=== PATIENT | male | born 1995 | race Asian ===

== ENCOUNTER 2021-07-06 13:15 | Emergency (ER) | payer OTHER ==
[2021-07-06] MEDS ORDERED: LIDOCAINE VISCOUS 2% 15 ML UDC MM STA (13:33)
[2021-07-06] MEDS ORDERED: MAG HYDROX/AL HYDROX/SIMETH 30 ML UDC PO STA (13:34)
--- NOTE | 2021-07-06 13:35 | ED Physician Documentation ---
PD HPI ABD PAIN - Stated complaint Stated Complaint: UPPER ABD PX/N/V - Chief complaint Chief Complaint: Abd Pain - History obtained from History obtained from: Patient - History of Present Illness Timing - onset: Enter time (124) Timing - duration: Minutes Timing - details: Abrupt onset, Still present Quality: Sharp, Pain Location: Epigastric Radiation: Chest Improved by: Laying still Worsened by: Breathing, Position, Palpation Associated symptoms: Nausea. No: Vomiting Similar symptoms before: Has not had sx before Recently seen: Not recently seen - Additional information Additional information: 26-year-old male reports that today he was standing when he had sudden onset of epigastric pain that was severe and stabbing in nature and this pain progressed to a 10 and he is come to the emergency department for evaluation. He has had prior symptoms of ulcer once previously he does not take any medication for his stomach and he denies any use of ibuprofen Aleve or alcohol.The patient indicates that he has not recently been ill. Review of Systems Constitutional: denies: Fever Eyes: denies: Decreased vision Ears: denies: Ear pain Nose: denies: Congestion Throat: denies: Sore throat Cardiac: denies: Chest pain / pressure, Palpitations, Pedal edema, Calf pain Respiratory: denies: Dyspnea, Cough GI: reports: Abdominal Pain, Nausea. denies: Vomiting, Constipation, Diarrhea : denies: Dysuria, Frequency PD PAST MEDICAL HISTORY - Present Medications Home Medications: Ambulatory Orders Medication Instructions Recorded Confirmed Sucralfate [Carafate] 1 gm PO ACHS #60 tablet 07/06/21 - Allergies Allergies/Adverse Reactions: Allergies Allergy/AdvReac Type Severity Reaction Status Date / Time No Known Drug Allergies Allergy Verified 07/06/21 13:22 PD ED PE NORMAL - Vitals Vital signs reviewed: Yes (Hypertensive mild) - General General: Alert and oriented X 3, No acute distress, Well developed/nourished - HEENT HEENT: Atraumatic, PERRL, EOMI - Neck Neck: Supple, no meningeal sign, No bony TTP - Cardiac Cardiac: RRR, No murmur - Respiratory Respiratory: No respiratory distress, Clear bilaterally - Abdomen Abdomen: Normal bowel sounds, Soft, Non distended, No organomegaly, Other (Mild epigastric tenderness to deep palpation. No right or left upper quadrant tenderness.) - Back Back: No CVA TTP, No spinal TTP - Derm Derm: Normal color, Warm and dry, No rash - Extremities Extremities: No deformity, No edema - Neuro Neuro: Alert and oriented X 3, roller cleaner 2-12 intact, No motor deficit, No sensory deficit, Normal speech Eye Opening: Spontaneous Motor: Obeys Commands Verbal: Oriented GCS Score: 15 - Psych Psych: Normal mood, Normal affect Results - Vitals Vitals: Vital Signs - 24 hr 07/06/21 07/06/21 13:22 15:04 Temperature 36.7 C Heart Rate 76 81 Respiratory 16 16 Rate Blood Pressure 125/84 H 147/97 H O2 Saturation 98 97 Oxygen O2 Source Room air - Labs Labs: Laboratory Tests 07/06/21 07/06/21 07/06/21 13:51 13:51 13:51 WBC 6.0 RBC 5.20 Hgb 15.3 Hct 44.9 MCV 86.3 MCH 29.4 MCHC 34.1 RDW 11.8 L Plt Count 233 MPV 10.3 Neut # (Auto) 4.3 Lymph # (Auto) 1.1 L [place] # (Auto) 0.5 Eos # (Auto) 0.1 Baso # (Auto) 0.0 Absolute Nucleated RBC 0.00 Nucleated RBC % 0.0 Sodium 139 Potassium 3.8 Chloride 100 L Carbon Dioxide 29 Anion Gap 10.0 BUN 14 Creatinine 1.2 Estimated GFR (MDRD) 73 L Glucose 131 H Calcium 9.8 Total Bilirubin 0.7 AST 33 ALT 38 Alkaline Phosphatase 53 Troponin I High Sens < 2.3 L Total Protein 8.5 H Albumin 4.8 Globulin 3.7 Albumin/Globulin Ratio 1.3 Lipase 32 PD MEDICAL DECISION MAKING - ED course Complexity details: reviewed results, re-evaluated patient, considered differential, d/w patient ED course: 26-year-old male with acute epigastric pain has resolution of his pain with use of viscous lidocaine and Mylanta and this has lasting power. He is instructed on the use of medications reduce the acid in stomach and the use of Carafate. He is administered a dose of Carafate here in the emergency department. Departure - Departure Disposition: 01 Home, Self Care Clinical Impression: Gastritis Qualifiers: Gastritis type: unspecified gastritis Chronicity: acute Gastritis bleeding: without bleeding Qualified Code(s): K29.00 - Acute gastritis without bleeding Condition: Stable Instructions: ED PUD Vs Gastritis Follow-Up: [facility]Provider Group[facility] Prescriptions: Sucralfate [Carafate] 1 gm PO ACHS #60 tablet Comments: Today we have diagnosed you with gastritis or an ulcer in your stomach or duoden um. The treatment for this is to be on a medication to reduce the acid in your stomach and a medication to help this heal up. My recommendation is to take some Pepcid AC or Nexium available [id number] on a regular basis for at least 2 weeks. During this time take the prescribed Carafate. Follow-up with your primary care doctor. Discharge Date/Time: 07/06/21 15:04
[2021-07-06 13:57] LABS: BASOPHILS % (AUTO) 0.5 %; EOSINOPHILS # (AUTO) 0.1 10^3/uL (0.0-0.7); EOSINOPHILS % (AUTO) 1.2 %; HCT - HEMATOCRIT 44.9 % (42.0-52.0); HGB - HEMOGLOBIN 15.3 g/dL (14.0-18.0); LYMPHOCYTES # (AUTO) 1.1 10^3/uL (1.5-3.5); LYMPHOCYTES % (AUTO) 18.1 %; MEAN CORPUSCULAR HEMOGLOBIN 29.4 pg (27.0-31.0); MEAN CORPUSCULAR HGB CONC 34.1 g/dL (32.0-36.0); MEAN CORPUSCULAR VOLUME 86.3 fL (80.0-94.0); MEAN PLATELET VOLUME 10.3 fL (7.4-11.4); MONOCYTES # (AUTO) 0.5 10^3/uL (0.0-1.0); MONOCYTES % (AUTO) 7.6 %; NEUTROPHILS # (AUTO) 4.3 10^3/uL (1.5-6.6); NEUTROPHILS % (AUTO) 72.1 %; PLT - PLATELET COUNT 233 10^3/uL (130-450); RED CELL DISTRIBUTION WIDTH 11.8 % (12.0-15.0)
[2021-07-06 14:11] LABS: ALBUMIN 4.8 g/dL (3.2-5.5); ALBUMIN/GLOBULIN RATIO 1.3 (1.0-2.2); BILIRUBIN,TOTAL 0.7 mg/dL (0.2-1.0); CALCIUM 9.8 mg/dL (8.5-10.3); CREATININE 1.2 mg/dL (0.6-1.2); POTASSIUM 3.8 mmol/L (3.5-5.0); TOTAL PROTEIN 8.5 g/dL (6.7-8.2)
[2021-07-06] MEDS ORDERED: FAMOTIDINE 20 MG TABLET PO STA (14:48)
[2021-07-06] MEDS ORDERED: SUCRALFATE 1 GM/10 ML UDC PO STA (14:48)
[2021-07-06 15:06] VITALS: BP 147/97
== END 2021-07-06 15:04 | disposition home or self-care (01) ==
LOC: ED 13:15
DX: K29.00 Acute gastritis without bleeding (principal)
CPT/HCPCS: 36415; 80053; 83690; 84484; 85025; 99283; 99284; A9270